=== PATIENT | male | born 1995 | race Caucasian/White ===

== ENCOUNTER 2018-01-02 12:37 | Day surgery (SDC) | payer OTHER ==
[~2018-01-02] VITALS: Ht 185.4 cm; Wt 92.4 kg
[~2018-01-02 12:37] MED LIST: BUPIVACAINE/PF-EPI 0.5% 1:200K ONE
[2018-01-02] MEDS ORDERED: LACTATED RINGERS 1,000 ML IV SCH (13:13)
[2018-01-02 13:32] VITALS: BP 127/73
[2018-01-02] MEDS ORDERED: NONE PER PT (13:32)
[2018-01-02] MEDS ORDERED: MIDAZOLAM 1 MG/ML, 2ML ONE (15:16)
[2018-01-02] MEDS ORDERED: FENTANYL PF 100 MCG/2ML ONE ×2 (15:16→16:39)
[2018-01-02] MEDS ORDERED: ONDANSETRON 2MG/ML, 2ML ONE (15:17)
[2018-01-02] MEDS ORDERED: LIDOCAINE-MPF 2% ,5ML ONE (15:17)
[2018-01-02] MEDS ORDERED: DEXAMETHASONE 4 MG/ML, 1ML ONE (15:17)
[2018-01-02] MEDS ORDERED: METOCLOPRAMIDE 5 MG/ML, 2ML ONE (15:21)
[2018-01-02] MEDS ORDERED: PROPOFOL 10 MG/ML, 20ML ONE (15:51)
[2018-01-02] MEDS ORDERED: SUCCINYLCHOLINE 20 MG/ML, 10ML ONE (15:51)
[2018-01-02] MEDS ORDERED: OXYcodone 5 MG/5 ML ORAL.SOL UDC ONE (16:39)
[2018-01-02] MEDS ORDERED: LABETALOL 5MG/ML, 20ML IV PRN (17:00)
[2018-01-02] MEDS ORDERED: OXYcodone 5 MG/5 ML ORAL.SOL UDC PO PRN (17:00)
[2018-01-02] MEDS ORDERED: MEPERIDINE/PF 25MG/0.5ML IVPush PRN (17:00)
[2018-01-02] MEDS ORDERED: ONDANSETRON 2MG/ML, 2ML IVPush PRN (17:00)
[2018-01-02] MEDS ORDERED: FENTANYL PF 100 MCG/2ML IV PRN (17:00)
[2018-01-02] MEDS ORDERED: MIDAZOLAM 1 MG/ML, 2ML IV PRN (17:00)
[2018-01-02] MEDS ORDERED: HYDROmorphone 1 MG/ML, 1ML IV PRN (17:00)
== END 2018-01-02 18:25 | disposition home or self-care (01) ==
LOC: OUT 12:37
PROVIDERS: ATTEND Surgery
DX: M79.89 Other specified soft tissue disorders (principal)
CPT/HCPCS: 21931; 88307; J0330; J1100; J2250; J2405; J2704; J2765; J3490; J7120; 88304; J3010